=== PATIENT | male | born 1985 | race African-American/Black ===

== ENCOUNTER 2018-11-11 13:58 | Emergency (ER) | payer BC ==
[2018-11-11] MEDS ORDERED: oxyCODONE/Acetamin 5/325 MG* TAB PO ONE (16:00)
[2018-11-11 16:49] LABS: ABS Basophils 0.1 10^3/ul (0-0.2); ABS Eosinophils 0.2 10^3/ul (0-0.6); ABS Lymphocytes 3.2 10^3/ul (1.0-4.8); ABS Monocytes 0.4 10^3/ul (0-0.8); ABS Neutrophils 6.2 10^3/ul (1.5-7.7); Eosinophil % 1.9 %; Hematocrit 40 % (42-52); Hemoglobin 13.3 g/dL (14.0-18.0); Lymphocyte % 31.8 %; Mean Corpuscular HGB Conc 34 g/dL (31-36); Mean Corpuscular Hemoglobin 30 pg (27-31); Mean Corpuscular Volume 89 fL (80-94); Mean Platelet Volume 8.4 fL (7.4-10.4); Nucleated Red Blood Cells % 0.1; Platelet Count 283 10^3/uL (150-450); Red Blood Count 4.49 10^6 /uL (4.18-5.48); Red Cell Distribution Width 14 % (10.5-15); White Blood Count 10.1 10^3/uL (3.5-10.8)
[2018-11-11 17:09] LABS: Potassium 4.1 mmol/L (3.5-5.0)
[2018-11-11 17:18] LABS: Albumin 4.3 g/dL (3.2-5.2); Calcium 9.8 mg/dL (8.6-10.3); Total Bilirubin 0.4 mg/dL (0.2-1.0)
[2018-11-11 17:24] LABS: Albumin/Globulin Ratio 1.3 (1-3); BUN/Creatinine Ratio 12.5 (8-20); C Reactive Protein 5.55 mg/L (<8.01); EGFR African American 121.4 (>60); EGFR Non-African American 100.4 (>60); Globulin 3.4 g/dL (2-4); Total Protein 7.7 g/dL (6.4-8.9)
[2018-11-11] MEDS ORDERED: Lidocaine 2.5%/Prilocain 2.5%* 5 GM TUBE TOPICAL ONE (17:49)
--- NOTE | 2018-11-11 18:17 | ED ---
Throat Pain/Nasal Congestion - HPI Summary HPI Summary: 32-year-old male presents with swelling to left-sided neck. He states he just had dental work and got his wisdom teeth removed. He states he's had increasing swelling but denies any difficulty swallowing. Denies any chest pain or shortness of breath. He has no dental pain and has numbs to the lower part of his jaw. He states he felt fevers. He is not able to eat taking less due to dental work. he states that he squeezed some fluid out of it. - History of Current Complaint Chief Complaint: EDNeckComplaint Time Seen by Provider: 11/11/18 15:37 - Allergies/Home Medications Allergies/Adverse Reactions: Allergies Allergy/AdvReac Type Severity Reaction Status Date / Time No Known Allergies Allergy Verified 11/11/18 14:04 PMH/Surg Hx/FS Hx/Imm Hx Endocrine/Hematology History: Denies: Hx Anticoagulant Therapy Respiratory History: Denies: Hx Asthma Infectious Disease History: No Infectious Disease History: Denies: Traveled Outside the [place] in Last 30 Days - Family History Known Family History: Positive: Non-Contributory - Social History Alcohol Use: None Substance Use Type: Reports: None Smoking Status (MU): Never Smoked Tobacco Review of Systems Negative: Fever Negative: Chest Pain Negative: Shortness Of Breath Positive: Other - abscess All Other Systems Reviewed And Are Negative: Yes Physical Exam Triage Information Reviewed: Yes Vital Signs On Initial Exam: Initial Vitals Temp Pulse Resp BP Pulse Ox 98.4 F 85 14 133/80 99 11/11/18 14:00 11/11/18 14:00 11/11/18 14:00 11/11/18 14:00 11/11/18 14:00 Vital Signs Reviewed: Yes Appearance: Positive: Well-Appearing Skin: Positive: Warm, Dry Head/Face: Positive: Normal Head/Face Inspection Eyes: Positive: Normal, EOMI, ISAIAS, Conjunctiva Clear ENT: Positive: Normal ENT inspection, Pharynx normal, TMs normal Neck: Positive: Other: - swelling to left side of neck Respiratory/Lung Sounds: Positive: Clear to Auscultation, Breath Sounds Present Cardiovascular: Positive: Normal, RRR Abdomen Description: Positive: Nontender, Soft Bowel Sounds: Positive: Present Musculoskeletal: Positive: Normal Neurological: Positive: Normal Psychiatric: Positive: Normal Procedures - Incision and Drainage neck Site: left lateral neck Instrument(s): Needle Diagnostics - Vital Signs Vital Signs Temp Pulse Resp BP Pulse Ox 11/11/18 16:05 16 11/11/18 14:00 98.4 F 85 14 133/80 99 - Laboratory Lab Results: Lab Results 11/11/18 11/11/18 Range/Units 16:41 16:41 WBC 10.1 (3.5-10.8) 10^3/uL RBC 4.49 (4.18-5.48) 10^6 /uL Hgb 13.3 L (14.0-18.0) g/dL Hct 40 L (42-52) % MCV 89 (80-94) fL MCH 30 (27-31) pg MCHC 34 (31-36) g/dL RDW 14 (10.5-15) % Plt Count 283 (150-450) 10^3/uL MPV 8.4 (7.4-10.4) fL Neut % (Auto) 61.1 % Lymph % (Auto) 31.8 % Wise % (Auto) 4.4 % Eos % (Auto) 1.9 % Baso % (Auto) 0.8 % Absolute Neuts (auto) 6.2 (1.5-7.7) 10^3/ul Absolute Lymphs (auto) 3.2 (1.0-4.8) 10^3/ul Absolute Monos (auto) 0.4 (0-0.8) 10^3/ul Absolute Eos (auto) 0.2 (0-0.6) 10^3/ul Absolute Basos (auto) 0.1 (0-0.2) 10^3/ul Absolute Nucleated RBC 0.0 10^3/ul Nucleated RBC % 0.1 Sodium 139 (135-145) mmol/L Potassium 4.1 (3.5-5.0) mmol/L Chloride 106 (101-111) mmol/L Carbon Dioxide 28 (22-32) mmol/L Anion Gap 4 (2-11) mmol/L BUN 11 (6-24) mg/dL Creatinine 0.88 (0.67-1.17) mg/dL Est GFR ( Amer) 121.4 (>60) Est GFR (Non-Af Amer) 100.4 (>60) BUN/Creatinine Ratio 12.5 (8-20) Glucose 92 (70-100) mg/dL Calcium 9.8 (8.6-10.3) mg/dL Total Bilirubin 0.40 (0.2-1.0) mg/dL AST 17 (13-39) U/L ALT 14 (7-52) U/L Alkaline Phosphatase 63 (34-104) U/L C-Reactive Protein 5.55 (<8.01) mg/L Total Protein 7.7 (6.4-8.9) g/dL Albumin 4.3 (3.2-5.2) g/dL Globulin 3.4 (2-4) g/dL Albumin/Globulin Ratio 1.3 (1-3) Amylase 59 (29-103) U/L Result Diagrams: 11/11/18 16:41 11/11/18 16:41 Lab Statement: Any lab studies that have been ordered have been reviewed, and results considered in the medical decision making process. EENT Course/Dx - Course Course Of Treatment: 32-year-old male presents with swelling to left-sided neck. He states he just had dental work and got his wisdom teeth removed. He states he's had increasing swelling but denies any difficulty swallowing. Denies any chest pain or shortness of breath. He has no dental pain and has numbs to the lower part of his jaw. He states he felt fevers. He is not able to eat taking less due to dental work. On exam has edema noted to left side of neck. Ultrasound shows potential abscess. White blood cell count normal. Amylase normal. Discussed with Dr. oliveira says to potentially I&D the area. Performed needle aspiration and unable to express any pus. feels more like a nodule when try to aspirate it so did not incise. will start on clindamycin and follow up with ENT. patient understand and agrees with plan. - Differential Diagnoses Differential Diagnoses: Other - abscess, parotiditis, sialadenitis - Diagnoses Provider Diagnoses: Abscess Discharge - Sign-Out/Discharge Documenting (check all that apply): Patient Departure Patient Received Moderate/Deep Sedation with Procedure: No - Discharge Plan Condition: Good Disposition: HOME Prescriptions: Clindamycin Cap(NF) [Clindamycin Cap 300 mg Cap(NF)] 300 mg PO TID #29 cap Patient Education Materials: Abscess (ED) Referrals: Nacho,Tabby A, [employer]CH [Primary Care Provider] - Akira Ku MD [Medical Doctor] - Additional Instructions: Take antibiotic three a day for 10 days, first dose given in ED Apply warm compresses to area Take ibuprofen or Tylenol for pain every 6 hours Follow up with primary or ENT within 3 days Return to ED if develop fever, area of redness spreads, or any new or worsening symptoms - Billing Disposition and Condition Condition: GOOD Disposition: Home
[2018-11-11] MEDS ORDERED: Clindamycin CAP* 150 MG PO ONE (18:26)
[2018-11-11 19:10] VITALS: BP 134/78
== END 2018-11-11 19:09 | disposition home or self-care (01) ==
LOC: ED 13:58
DX: L02.11 Cutaneous abscess of neck (principal); K08.409 Partial loss of teeth, unspecified cause, unspecified class
CPT/HCPCS: 10060; 36415; 76536; 80053; 82150; 85025; 86140; 99282; A9270-GY